=== PATIENT | female | born 1945 | race Caucasian/White ===

== ENCOUNTER 2017-12-24 10:01 | Outpatient (CLI) | payer MEDICARE ==
[2017-12-24 11:02] LABS: #Basophils 0.1 thou/uL (0.0-0.2); #Eosinphils 0.2 thou/uL (0.0-0.7); #Lymphocytes 1.7 thou/uL (1.20-3.40); #Monocytes 0.7 thou/uL (0.11-0.59); #Neutrophils 2.2 thou/uL (1.40-6.50); %Basophils 1.4 % (0.0-1.0); %Eosinophils 3.8 % (0.0-10.0); %Lymphocytes 35.1 % (21.0-51.0); %Monocytes 13.9 % (0.0-10.0); %Neutrophils 45.9 % (42.0-75.0); Hemoglobin 12.8 g/dL (12.0-16.0); Mean Corpuscular HGB CONC 33.9 g/dL (32.0-36.0); Mean Corpuscular Hemoglobin 34.1 pg (27.0-31.0); Mean Corpuscular Volume 100.6 fl (81.0-99.0); Mean Platelet Volume 7.4 fL (7.4-10.4); Platelet Count 215 thou/uL (130-400); RBC Distribution Width 11.3 % (11.5-14.5); Red Blood Cell (RBC) Count 3.76 mill/uL (4.20-5.40); White Blood Cell (WBC) Count 4.8 thou/uL (4.8-10.8)
[2017-12-24 11:06] LABS: Manual Diff?? NO
[2017-12-24 11:11] LABS: ALT (SGPT) 17 U/L (8-55); AST (SGOT) 21 U/L (5-34); Albumin 4.1 g/dL (3.4-4.8); Alkaline Phosphatase 69 U/L (40-150); Anion Gap 18 mmol/L (10-20); BUN (Urea Nitrogen) 20 mg/dL (9.8-20.1); Bilirubin, Total 0.6 mg/dL (0.2-1.2); Calc. Creatinine Clearance 0 mL/min (70-130); Calcium 9.7 mg/dL (7.8-10.44); Carbon Dioxide 25 mmol/L (23-31); Cholesterol 285 mg/dl (< 200 Desired); Estimated GFR-MDRD 51; Globulin 3.2 g/dL (2.4-3.5); Glucose 92 mg/dL (83-110); HDL Cholesterol 95 mg/dL (>60 Neg Risk); LDL Cholesterol, Calculated 157 mg/dL; Potassium 4.5 mmol/L (3.5-5.1); Protein, Total 7.3 g/dL (6.0-8.3); Sodium 136 mmol/L (136-145); Triglycerides 163 mg/dL (Less than 150); Uric Acid 7.1 mg/dL (2.6-6.0)
--- NOTE | 2017-12-24 12:14 | RAD ---
RIGHT HAND RADIOGRAPHS THREE VIEWS: Date: 12-24-17 Provided Clinical History: Right hand pain. FINDINGS: There is prominent joint space loss and osteophyte formation seen involving the middle digit PIP join t. Similar though less conspicuous changes are seen at the second and third DIP joints. 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 There is no evidence for fracture. Sublux ation at the second MCP joint is seen. Subluxation of the middle phalanx of the ulnarly with respect to the proximal phalanx is seen. No erosive changes are evident. Bone mineralization appears preserve d. 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 POS: OFF
[2017-12-24 12:15] LABS: Chloride 98 mmol/L (98-107)
--- NOTE | 2017-12-24 12:17 | RAD ---
LEFT HAND 3 VIEWS: HISTORY: Hand pain. FINDINGS: There are severe osteoarthritic changes of the hand. These changes are particularly pronounced at th e 1st carpometacarpal joint space and triscaphe joint. There is calcification of the triangular fibr ocartilage. There are also marked osteoarthritic changes of the PIP joint of the middle finger and D IP joints of the index and middle fingers, but some of the changes could be on the basis of some [place] ent of erosive osteoarthritis. There is subluxation at the 2nd metacarpal plangeal joint. There is no bony demineralization seen. IMPRESSION: Marked arthritic changes of the hand. POS: OFF
[2017-12-24 22:02] LABS: CRP (Inflammatory) 1.15 mg/dL (= or < 0.5)
[2017-12-25 12:27] LABS: CCP IgG Antibody 0.9 EliAU/mL (<7 Negative); EliA RAS New Method **** NEW METHOD ****; Rheumatoid Factor IgA Antibody 3.5 IU/mL (<14 Negative); Rheumatoid Factor IgM Antibody 0.9 IU/mL (<3.5 Negative)
== END 2017-12-24 10:02 | disposition home or self-care (01) ==
LOC: MADLABBHPM 10:01
PROVIDERS: ATTEND Family Medicine
DX: Z00.00 Encounter for general adult medical examination without abnormal findings (principal); M19.041 Primary osteoarthritis, right hand; I10 Essential (primary) hypertension
CPT/HCPCS: 36415; 80053; 80061; 83520; 84443; 84550; 85025; 85652; 86140; 86200

== ENCOUNTER 2018-07-14 10:11 | Outpatient (CLI) | payer MEDICARE ==
--- NOTE | 2018-07-14 12:18 | ULT ---
RENAL ULTRASOUND: HISTORY: Chronic renal disease. Family history of renal cell cancer. TECHNIQUE: Real-time imaging of the right and left kidneys was performed. FINDINGS: The right kidney measures 8.5 and the left kidney 7.3 cm. There are no signs of cyst, mass, or obstr uction. The bladder region is unremarkable. IMPRESSION: Borderline small kidneys. No signs of obstruction or evidence of mass. POS: KELLE
== END 2018-07-14 10:12 | disposition home or self-care (01) ==
LOC: MADRAD 10:11
PROVIDERS: ATTEND Internal Medicine Nephrology
DX: N18.9 Chronic kidney disease, unspecified (principal); N27.1 Small kidney, bilateral
CPT/HCPCS: 76770

== ENCOUNTER 2019-07-10 09:48 | Emergency (ER) | payer MEDICARE ==
[2019-07-10] MEDS ORDERED: Azithromycin 250 MG TAB ONE (10:37)
== END 2019-07-10 11:05 | disposition home or self-care (01) ==
LOC: MADERS 09:48
DX: R19.7 Diarrhea, unspecified (principal); A02.9 Salmonella infection, unspecified; I10 Essential (primary) hypertension; E78.5 Hyperlipidemia, unspecified; Z79.899 Other long term (current) drug therapy
CPT/HCPCS: 99283

== ENCOUNTER 2023-09-27 02:08 | Emergency (ER) | payer MEDICARE, OTHER ==
[2023-09-27] MEDS ORDERED: fentaNYL 50 mcg/mL 1 mL Vial ONE ×2 (02:56→05:20)
[2023-09-27] MEDS ORDERED: Ondansetron PF 4 MG/2 ML Vial ONE (02:57)
[2023-09-27 03:00] LABS: Troponin I 0.015 ng/mL (< 0.028)
[2023-09-27 03:01] LABS: ALT (SGPT) 68 U/L (8-55); AST (SGOT) 51 U/L (5-34); Albumin 2.8 g/dL (3.4-4.8); Alkaline Phosphatase 104 U/L (40-110); Anion Gap 24 mmol/L (10-20); BUN (Urea Nitrogen) 40 mg/dL (9.8-20.1); Bilirubin, Total 0.7 mg/dL (0.2-1.2); Calc. Creatinine Clearance 0 mL/min (70-130); Calcium 7.6 mg/dL (7.8-10.44); Carbon Dioxide 15 mmol/L (23-31); Chloride 102 mmol/L (98-107); Estimated GFR 21; Globulin 2.2 g/dL (2.4-3.5); Glucose 201 mg/dL (83-110); Lipase 5 U/L (8-78); Magnesium 1.5 mg/dL (1.6-2.6); Potassium 3.5 mmol/L (3.5-5.1); Sodium 137 mmol/L (136-145)
[2023-09-27 03:12] LABS: Band 42 % (5-11); Hematocrit 25.3 % (36.0-47.0); Hemoglobin 7.8 g/dL (12.0-16.0); Lymphocytes 19 % (21-51); MDiff Complete? YES; Mean Corpuscular Hemoglobin 30.9 pg (27.0-31.0); Mean Corpuscular Volume 99.9 fl (78.0-98.0); Mean Platelet Volume 8.8 fL (7.4-10.4); Metamyelocyte 3 % (0-0); Monocytes 7 % (0-10); Neutrophil 29 % (42-75); Platelet Adequacy Comment Appears Increased; Platelet Count 453 10x3/uL (130-400); RBC Distribution Width 15.2 % (11.5-14.5); Red Blood Cell (RBC) Count 2.53 mill/uL (4.20-5.40); Reflex for Review?? YES
[2023-09-27 04:05] LABS: Bacteria/HPF 4+ HPF (None Seen); Bilirubin Negative (Negative); Blood, Urine Moderate (Negative); CAUTI Indications for Culture Pelvic or flank pain; Clarity Cloudy (Clear); Glucose, Urine (Dipstick) Negative (Negative); Ketone, Urine Negative (Negative); Leukocyte Trace (Negative); Nitrite Negative (Negative); Protein, Urine (Dipstick) 30 mg/dL (Neg-Trace); RBC/HPF 0-3 HPF (0-3); Squamous Epithelial 0-3 HPF (0-3); Urobilinogen 0.2 mg/dL (Less than 2); pH, Urine 5.5 (5.0-9.0)
[2023-09-27 04:07] LABS: Urine Culture Reflex No No
[2023-09-27] MEDS ORDERED: cefTRIAXone (ROCEPHIN) 1 GM VIAL ONE (05:20)
[2023-09-27] MEDS ORDERED: Sodium Chloride 0.9% 100 ML ONE ×2 (05:20→05:49)
[2023-09-27 05:33] LABS: Lactic Acid 2.4 mmol/L (0.5-2.2)
[2023-09-27] MEDS ORDERED: Piperacillin/Tazobactam 4.5 GM VIAL ONE (05:49)
[2023-09-27] MEDS ORDERED: Morphine 4 MG/ML VIAL ONE (06:36)
[2023-09-27] MEDS ORDERED: Sodium Chloride 0.9% 1,000 ML ONE (08:41)
[2023-09-27] MEDS ORDERED: Magnesium 2 GM/50 ML BAG (IN WATER) ONE (09:36)
[2023-09-27] MEDS ORDERED: Dicyclomine 20 MG/2 ML VIAL ONE (09:36)
[2023-09-27 09:40] LABS: INR-International Normal Ratio 4.2; PTT 30.9 sec (22.9-36.1); Prothrombin Time 42.6 sec (12.0-14.7)
[2023-09-27 09:45] LABS: Hemoglobin 8.2 g/dL (12.0-16.0)
[2023-09-27] MEDS ORDERED: Calcium Gluc 4.6 MEQ/10 ML (100 MG/ML) ONE ×2 (09:51)
[2023-09-27 09:58] LABS: Anion Gap 23 mmol/L (10-20); BUN (Urea Nitrogen) 42 mg/dL (9.8-20.1); CK (CPK) Less than 9 U/L (29-168); Calc. Creatinine Clearance 0 mL/min (70-130); Carbon Dioxide 13 mmol/L (23-31); Chloride 109 mmol/L (98-107); Estimated GFR 22; Glucose 150 mg/dL (83-110); Potassium 3.5 mmol/L (3.5-5.1); Sodium 141 mmol/L (136-145)
[2023-09-27 10:00] LABS: Hematocrit 26.3 % (36.0-47.0)
[2023-09-27 10:04] LABS: Calcium 6.8 mg/dL (7.8-10.44); Critical Call Chemistry NUR.AW2
[2023-09-27 10:15] LABS: Lactic Acid 2.1 mmol/L (0.5-2.2)
[2023-09-27] MEDS ORDERED: Albumin 25% 100 ML ONE (10:44)
[2023-09-27 11:19] LABS: Base Excess-Venous -12.9 mmol/L (-2.0 to 3.0); Bicarbonate (HCO3v) 15.5 mmol/L (22.0-28.0); CO2 Tension (PvCO2) 46.8 mmHg (42.0-51.0); Calcium, Ionized 1.04 mmol/L (1.15-1.33); Chloride 112 mmol/L (98-107); Hemoglobin - Calc 8.1 g/dL (12.0-16.0); Potassium 3.2 mmol/L (3.5-5.1); Sodium 140 mmol/L (138-145); T. Carbon Dioxide 16.9 mmol/L (22.0-28.0); vO2 Saturation-calc 98.4 % (60.0-85.0)
[2023-09-27] MEDS ORDERED: Albuterol 2.5 MG/0.5 ML NEB ONE (11:25)
[2023-09-27] MEDS ORDERED: Ipratropium/Albuterol 3 ML NEB ONE (11:25)
[2023-09-27] MEDS ORDERED: predniSONE 20 MG TAB ONE (11:26)
== END 2023-09-27 10:31 | disposition short-term general hospital (02) ==
LOC: MADERS 02:08
DX: A41.9 Sepsis, unspecified organism (principal); D64.9 Anemia, unspecified; K65.1 Peritoneal abscess; E87.20 Acidosis, unspecified; E88.09 Other disorders of plasma-protein metabolism, not elsewhere classified; E83.51 Hypocalcemia; E83.42 Hypomagnesemia; N39.0 Urinary tract infection, site not specified; I12.9 Hypertensive chronic kidney disease with stage 1 through stage 4 chronic kidney disease, or unspecified chronic kidney disease; N18.30 Chronic kidney disease, stage 3 unspecified; I48.91 Unspecified atrial fibrillation; Z79.01 Long term (current) use of anticoagulants; Z79.899 Other long term (current) drug therapy
CPT/HCPCS: 51701; 71045; 74176; 80053; 80179; 81001; 82274; 82330; 82550; 82803; 83605; 83690; 83735; 83880; 84484; 85025; 85060; 85610; 85730; 93005; 94760; 96361; 96365; 96367; 96368; 96372; 96375; 96376; 80307; J0612; J0696; J2270; J2405; J2543; J3010; J3475; J7050; J7512; J7611; J7620; P9047